=== PATIENT | female | born 1950 | race Caucasian/White ===

== ENCOUNTER → 2018-01-20 | Outpatient (CLI) | payer MEDICARE, OTHER ==
[~2018-01-20] MED LIST: ASPI81EC; BP MED; CALGLU500; CIPR500 PO; CODACE30; CYCL10; DIAZ5; ESTMET; FISH1000; HYDACE5 PO; MULVITMIND; PERCOCET; PROM25 PO; RAMI5; REQUIP; TAMS.4ER; TOPROL; UNK BP MED; ZOLP10 PO; ZOLP5
== END | disposition home or self-care (01) ==
LOC: LAB SHORT 10:27 → PLD 10:27
DX: D22.5 Melanocytic nevi of trunk (principal)
CPT/HCPCS: 88305